=== PATIENT | female | born 1990 ===

== ENCOUNTER 2020-06-30 05:12 | Emergency (ER) | payer SELFPAY ==
[2020-06-30] MEDS ORDERED: ALUM-MAG HYDROXIDE-SIMETHICONE 200-200-20MG/5ML ORAL LIQD 30 ML PO ONE (05:20)
[2020-06-30] MEDS ORDERED: LIDOCAINE VISCOUS 2% 15 ML ORAL LIQD PO ONE (05:20)
--- NOTE | 2020-06-30 05:23 | Event Note ---
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 Patient not currently taking antiacids. This initial assessment/diagnostic orders/clinical plan/treatment(s) is/are subject to change based on patients health status, clinical progression and re- assessment by fellow clinical providers in the ED. Further treatment and workup at subsequent clinical providers discretion. Patient/guardian urged not to elope from the ED as their condition may be serious if not clinically assessed and managed. Initial orders include: cxr, GI Cocktail
--- NOTE | 2020-06-30 05:42 | XRay Report ---
CHEST 2 VIEWS INDICATION / CLINICAL INFORMATION: epigastric pain. COMPARISON: None available. FINDINGS: SUPPORT DEVICES: None. HEART / MEDIASTINUM: No significant abnormality. LUNGS / PLEURA: No significant pulmonary or pleural abnormality. No pneumothorax. ADDITIONAL FINDINGS: No significant additional findings. IMPRESSION: 1. No acute findings. Signer Name: Vaibhav Clark MD Signed: 06/30/2020 5:38 AM Workstation Name: [id number]
[2020-06-30 06:30] LABS: Basophils % (Auto) 0.2 % (0.0-1.8); Eosinophils # (Auto) 0.5 K/mm3 (0.0-0.4); Hematocrit 39.4 % (30.3-42.9); Hemoglobin 13.4 gm/dl (10.1-14.3); Lymphocytes % (Auto) 36.8 % (13.4-35.0); Mean Corpuscular HGB Conc 34 % (30-34); Mean Corpuscular Volume 80 fl (79-97); Monocytes # (Auto) 0.5 K/mm3 (0.0-0.8); Monocytes % (Auto) 6.2 % (0.0-7.3); Platelet Count 311 K/mm3 (140-440); Red Blood Count 4.93 M/mm3 (3.65-5.03); Red Cell Distribution Width 14.7 % (13.2-15.2)
[2020-06-30 06:41] LABS: Blood Urea Nitrogen 11 mg/dL (7-17); Calcium 9.3 mg/dL (8.4-10.2)
[2020-06-30 06:42] LABS: Alanine Aminotransferase 17 units/L (7-56); Albumin 4.5 g/dL (3.9-5); Hemolysis Index 3
[2020-06-30 06:47] LABS: BUN/Creatinine Ratio 18
[2020-06-30 06:57] LABS: Bacteria,Urine 1+ /HPF (Negative); Bilirubin,Urine NEG (Negative); Blood,Urine SM (Negative); Color,Urine Straw (Yellow); Protein,Urine <15 mg/dL mg/dL (Negative); Urobilinogen,Urine < 2.0 mg/dL (<2.0)
[2020-06-30] MEDS ORDERED: FAMOTIDINE 20 MG TAB PO ONE (07:27)
--- NOTE | 2020-06-30 07:34 | Emergency Department Report ---
HPI - General Chief Complaint: Dyspnea/Respdistress Time Seen by Provider: 06/30/20 07:15 - [facility] HPI: Room 38 The patient is a 30-year-old female presenting with a chief complaint of choking and gagging. The patient states this morning at approximate 04: 3 0 she awakened choking feeling short of breath feels as though there is something acidic rising up in her chest. Patient states she felt short of breath with it. Patient denies history of fever. Patient states she has had 1 or 2 episodes of the same in the past but has never been given a diagnosis ED Past Medical Hx - Past Medical History Previous Medical History?: No - Surgical History Past Surgical History?: Yes Additional Surgical History: Tubal Ligation - Family History Family history: no significant - Social History Smoking Status: Never Smoker Substance Use Type: None (Denies illicit drug use) - Medications Home Medications: Home Medications Medication Instructions Recorded Confirmed Last Taken Type Famotidine [Pepcid] 20 mg PO BID #60 tablet 06/30/20 Unknown Rx ED Review of Systems ROS: Stated complaint: SICK Other details as noted in HPI Constitutional: denies: fever Eyes: denies: eye pain ENT: throat pain Respiratory: shortness of breath Endocrine: no symptoms reported Gastrointestinal: nausea Musculoskeletal: denies: back pain Neurological: denies: headache Physical Exam - Physical Exam Vital Signs: Vital Signs 06/30/20 05:19 Temperature 98.2 F Pulse Rate 83 Respiratory 18 Rate Blood Pressure 140/103 O2 Sat by Pulse 98 Oximetry Physical Exam: GENERAL: The patient is well-developed well-nourished female lying on stretcher not appearing to be in acute distress. [] HEENT: Normocephalic. Atraumatic. Extraocular motions are intact. Patient has moist mucous membranes. Oropharynx clear NECK: Supple. Trachea midline CHEST/LUNGS: Clear to auscultation. There is no respiratory distress noted. HEART/CARDIOVASCULAR: Regular. There is no tachycardia. There is no gallop rub or murmur. ABDOMEN: Abdomen is soft, nontender. Patient has normal bowel sounds. There is no abdominal distention. SKIN: There is no rash. There is no edema. There is no diaphoresis. NEURO: The patient is awake, alert, and oriented. The patient is cooperative. The patient has no focal neurologic deficits. The patient has normal speech MUSCULOSKELETAL: There is no evidence of acute injury. ED Course Vital Signs 06/30/20 05:19 Temperature 98.2 F Pulse Rate 83 Respiratory 18 Rate Blood Pressure 140/103 O2 Sat by Pulse 98 Oximetry ED Medical Decision Making - Lab Data Result diagrams: 06/30/20 05:56 06/30/20 05:56 Laboratory Tests 06/30/20 06/30/20 06/30/20 05:56 05:56 05:56 WBC 8.1 RBC 4.93 Hgb 13.4 Hct 39.4 MCV 80 MCH 27 L MCHC 34 RDW 14.7 Plt Count 311 Lymph % (Auto) 36.8 H [place] % (Auto) 6.2 Eos % (Auto) 6.0 H Baso % (Auto) 0.2 Lymph # (Auto) 3.0 [place] # (Auto) 0.5 Eos # (Auto) 0.5 H Baso # (Auto) 0.0 Seg Neutrophils % 50.8 Seg Neutrophils # 4.1 Sodium 139 Potassium 3.7 Chloride 101.2 Carbon Dioxide 28 Anion Gap 14 BUN 11 Creatinine 0.6 Estimated GFR > 60 BUN/Creatinine Ratio 18 Glucose 103 H Calcium 9.3 Total Bilirubin 0.20 AST 18 ALT 17 Alkaline Phosphatase 66 Troponin T < 0.010 Total Protein 7.7 Albumin 4.5 Albumin/Globulin Ratio 1.4 Lipase 31 Urine Color Urine Turbidity Urine pH Ur Specific [place] Urine Protein Urine Glucose (UA) Urine Ketones Urine Blood Urine Nitrite Urine Bilirubin Urine Urobilinogen Ur Leukocyte Esterase Urine WBC (Auto) Urine RBC (Auto) U Epithel Cells (Auto) Urine Bacteria (Auto) Urine HCG, Qual 06/30/20 06/30/20 06:02 06:02 WBC RBC Hgb Hct MCV MCH MCHC RDW Plt Count Lymph % (Auto) [place] % (Auto) Eos % (Auto) Baso % (Auto) Lymph # (Auto) [place] # (Auto) Eos # (Auto) Baso # (Auto) Seg Neutrophils % Seg Neutrophils # Sodium Potassium Chloride Carbon Dioxide Anion Gap BUN Creatinine Estimated GFR BUN/Creatinine Ratio Glucose Calcium Total Bilirubin AST ALT Alkaline Phosphatase Troponin T Total Protein Albumin Albumin/Globulin Ratio Lipase Urine Color Straw Urine Turbidity Clear Urine pH 7.0 Ur Specific [place] 1.012 Urine Protein <15 mg/dl Urine Glucose (UA) Neg Urine Ketones Neg Urine Blood Sm Urine Nitrite Neg Urine Bilirubin Neg Urine Urobilinogen < 2.0 Ur Leukocyte Esterase Neg Urine WBC (Auto) 1.0 Urine RBC (Auto) 1.0 U Epithel Cells (Auto) 4.0 Urine Bacteria (Auto) 1+ Urine HCG, Qual Negative - EKG Data -: EKG Interpreted by Me EKG shows normal: sinus rhythm Rate: normal - EKG Data When compared to previous EKG there are: previous EKG unavailable Interpretation: nonspecific ST-T wave gm (T wave inversion lead III) - Radiology Data Radiology results: report reviewed (Chest x-ray, lateral soft tissue neck x- ray), image reviewed (Chest x-ray, lateral soft tissue neck x-ray) interpreted by me: Chest x-ray-no focal infiltrates, no pneumothorax Lateral soft tissue neck x-ray-no prevertebral swelling, no evidence of epiglottitis. No foreign body seen [facility] [address] [place] [address] X Ray Report Signed Patient: ERWIN ROBERTO MR#: [id number] : 1990 Acct:[id number] Age/Sex: 30 / F ADM Date: 06/30/20 Loc: ED Attending Dr: Ordering Physician: OMAR SAENZ NP Date of Service: 06/30/20 Procedure(s): XR chest routine 2V Accession Number(s): [id number] cc: OMAR SAENZ NP Fluoro Time In Minutes: CHEST 2 VIEWS INDICATION / CLINICAL INFORMATION: epigastric pain. COMPARISON: None available. FINDINGS: SUPPORT DEVICES: None. HEART / MEDIASTINUM: No significant abnormality. LUNGS / PLEURA: No significant pulmonary or pleural abnormality. No pneumothorax. ADDITIONAL F INDINGS: No significant additional findings. IMPRESSION: 1. No acute findings. Signer Name: Vaibhav Clark MD Signed: 06/30/2020 5:38 AM Workstation Name: [id number] Transcribed By: LAURA Dictated By: Vaibhav Clrak MD Electronically Authenticated By: Vaibhav Clark MD Signed Date/Time: 06/30/20537 DD/ 7 TD/TT: - Differential Diagnosis GERD, ACS, anxiety, bronchitis, Critical care attestation.: If time is entered above; I have spent that time in minutes in the direct care of this critically ill patient, excluding procedure time. ED Disposition Clinical Impression: GERD (gastroesophageal reflux disease) Disposition: DC-01 TO HOME OR SELFCARE Is pt being admited?: No Does the pt Need Aspirin: No Condition: Stable Instructions: Gastroesophageal Reflux Disease, Adult, [id number] Additional Instructions: Return to the emergency department should you develop worsening symptoms, inability to tolerate food or liquids, high fever or any other concerns Prescriptions: Famotidine [Pepcid] 20 mg PO BID #60 tablet Referrals: FELICIA SERNA MD [Staff Physician] - 3-5 Days (Dr. Serna is a primary physician. Please follow-up with him to be established as a patient) GALA RIDLEY MD [Staff Physician] - 3-5 Days (Dr. Ridley is a assistant film editor. Please follow-up with him for further evaluation) PERLITA RATLIFF MD [Staff Physician] - 3-5 Days (Dr. Ratliff is an ear nose and throat doctor. Please follow-up with him for further evaluation) Time of Disposition: 09:37
[2020-06-30 07:46] VITALS: BP 131/89
[2020-06-30 09:03] LABS: HCG Qualitative,Urine Negative (Negative)
--- NOTE | 2020-06-30 09:33 | XRay Report ---
SOFT TISSUES OF THE NECK INDICATION / CLINICAL INFORMATION: Throat tightness. COMPARISON: None available. FINDINGS: Airway appears patent. No gross abnormal mass. Epiglottis is not optimally seen but is grossly unrema rkable. Obviously, if mass is suspected, suggest CT with contrast. Signer Name: Pk Nagy MD Signed: 06/30/2020 9:28 AM Workstation Name: [id number]
== END 2020-06-30 09:50 | disposition home or self-care (01) ==
LOC: ED 05:12
DX: K21.9 Gastro-esophageal reflux disease without esophagitis (principal); Z98.51 Tubal ligation status; Z79.899 Other long term (current) drug therapy
CPT/HCPCS: 36415; 70360; 71046; 80053; 81001; 81025; 83690; 84484; 85025; 93005